=== PATIENT | male | born 1960 | race Caucasian/White ===

== ENCOUNTER 2018-12-30 07:41 | Day surgery (SDC) | payer MEDICAID ==
[~2018-12-30] VITALS: Ht 182.9 cm; Wt 90.9 kg
[2018-12-30 07:55] VITALS: BP 176/109
[2018-12-30] MEDS ORDERED: LISI-600 PO (08:12)
[2018-12-30] MEDS ORDERED: INSU100V12 SQ (08:15)
[2018-12-30] MEDS ORDERED: LEDI1TAB PO (08:17)
[2018-12-30] MEDS ORDERED: LIDOcaine Viscous 15ml cup ONE (08:18)
[2018-12-30] MEDS ORDERED: fentaNYL/PF 50MCG/1 ML 2ML syringe ONE (08:18)
[2018-12-30] MEDS ORDERED: MIDAZolam 5mg/5ml vial ONE (08:18)
[2018-12-30 09:00] VITALS: BP 146/90
[2018-12-30 09:10] VITALS: BP 143/90
[2018-12-30 09:20] VITALS: BP 156/86
[2018-12-30 09:30] VITALS: BP 149/93
== END 2018-12-30 09:30 | disposition home or self-care (01) ==
LOC: GI LAB 07:41
PROVIDERS: ATTEND Internal Medicine Gastroenterology
DX: K29.50 Unspecified chronic gastritis without bleeding (principal); K29.80 Duodenitis without bleeding; K74.60 Unspecified cirrhosis of liver
CPT/HCPCS: 43239; 99152; J2250; J3010; J7040; A4620

== ENCOUNTER 2023-10-10 09:29 | Outpatient (CLI) | payer MEDICAID ==
[~2023-10-10 09:29] MED LIST: INSU100V12 SQ; LEDI1TAB PO; LISI20TA28 PO
[2023-10-10 10:14] LABS: ALBUMIN 4.4 G/DL (3.4-5.0); ANION GAP 8 (8-16); BLOOD UREA NITROGEN 16 MG/DL (7-18); BUN/CREATININE RATIO 16.8 (10.0-20.0); CALCIUM 9.8 MG/DL (8.5-10.1); CHLORIDE 101 MMOL/L (99-107); CREATININE 0.95 MG/DL (0.60-1.10); GLUCOSE 137 MG/DL (70-104); POTASSIUM 3.8 MMOL/L (3.5-5.1); SODIUM 139 MMOL/L (135-145); TOTAL CARBON DIOXIDE 29.8 MMOL/L (24-32); eGFR 80 ML/MIN
== END 2023-10-10 23:59 | disposition home or self-care (01) ==
LOC: LAB 09:29
PROVIDERS: ATTEND Family Medicine
DX: I10 Essential (primary) hypertension (principal)
CPT/HCPCS: 36415; 80048

== ENCOUNTER 2023-10-24 07:22 | Outpatient (CLI) | payer MEDICAID ==
[2023-10-24] MEDS ORDERED: GADOTERATE MEGLUMINE 7.5 MMOL/15 ML VIAL IV ONE (09:37)
== END 2023-10-24 23:59 | disposition home or self-care (01) ==
LOC: MRI 07:22
PROVIDERS: ATTEND Family Medicine
DX: M67.823 Other specified disorders of tendon, right elbow (principal); M79.89 Other specified soft tissue disorders
CPT/HCPCS: 73223; A9575